=== PATIENT | female | born 1985 | race Hispanic/Latino ===

== ENCOUNTER 2016-12-27 02:56 | Inpatient (IN) | payer OTHER ==
[~2016-12-27] VITALS: Ht 167.6 cm; Wt 81.6 kg
[~2016-12-27 02:56] MED LIST: TYLENOL #31 TAB PO
[2016-12-28 06:24] LABS: ABSOLUTE BASOPHIL COUNT 0 /CUMM (0.0-0.2); ABSOLUTE EOSINOPHIL COUNT 0 /CUMM (0.0-0.7); ABSOLUTE GRANULOCYTE CT 13.9 /CUMM (1.4-6.5); ABSOLUTE LYMPH COUNT 0.8 /CUMM (1.2-3.4); BASOPHIL % 0.1 % (0.0-2.0); EOSINOPHIL % 0 % (0-5); GRANULOCYTE % 88.5 % (42.2-75.2); HEMATOCRIT 32.1 % (37-47); MEAN CORPUSCULAR HGB 26.5 PG (27.0-31.0); MEAN CORPUSCULAR HGB CONC 32.2 G/DL (33.0-37.0); MEAN CORPUSCULAR VOLUME 82.2 FL (81.0-99.0); PLATELET COUNT 230 /CUMM (130-400); RBC DISTRIBUTION WIDTH 15.4 % (11.5-14.5)
[2016-12-28 06:30] LABS: WHITE BLOOD CELL COUNT 15.8 /CUMM (4.8-10.8)
[2016-12-28] MEDS ORDERED: PERCOCET 5-3251 EACH PO (09:22)
--- NOTE | 2016-12-28 16:28 | Operative Report ---
Operative/Inv Procedure Report Surgery Date: 12/27/16 Name of Procedure: Cystoscopy. Bilateral stent insertion. Pre-Operative Diagnosis: Menorrhagia. Fibroid Post-Operative Diagnosis: Same Estimated Blood Loss: scant Surgeon/Operator Lights: MD MELISSA MACARIO-UROLOGY Anesthesia: general endotracheal tube (AAAAAAAA) Drains: 18 Croatian Harrison catheter Specimens: Urine culture Complications: None Operative/Procedure Note Note: The patient was taken to the operating room and placed on the OR table in supine position. Timeout was performed, with the patient awake, to confirm identify, planned procedures, anesthesia, antibiotics and other pertinent sergio-operative information. After adequate anesthesia, and IV antibiotics, the patient was placed in lithotomy Yellow-fin stirrups. She was then draped and prepped in the usual surgical fashion, including a vaginal prep. A 22 Croatian cystoscope sheath with a 30 angle lens was inserted into the bladder without significant difficulty. The bladder was thoroughly and systematically examined, and was noted to be free of tumor, free of stone, free of endometriosis. Both ureteral orifices were in their orthotopic positions with clear reflux bilaterally. Under direct visualization the left orifice was intubated with a 5 Croatian whistle-tip catheter, which was advanced easily into the left kidney pelvis. The right ureteral orifice was intubated with a second 5 Croatian ureteral whistle tip catheter, and advanced into the right renal pelvis without difficulty. For identification purposes the blue marked stent went into the left kidney and the right ureteral stent was marked red. Urine culture was obtained and sent to pathology. The cystoscope was then removed leaving both stents in proper place. An 18 Croatian Harrison catheter was inserted draining clear fluid and 10 mL of sterile water was then placed in the balloon. The ends ureteral stents, which protruded externally, were taped to the Harrison catheter in order to secure their position. The individual ureteral stents were then connected to their individual drainage devices. The patient tolerated the procedure well. All sponge needle and instrument count were correct at the end of this procedure. The patient was then placed in supine position with Venodyne's in place. At this point, Dr. Cook was able to proceed with her patient's surgery. Findings: Normal bladder Additional Comments: Bilateral stents to be removed by Dr. Cook at the end of her part of the procedure. CC: MELISSA MACARIO MD
[2016-12-29 02:43] VITALS: BP 118/78
--- NOTE | 2016-12-29 09:07 | PN- Post Delivery/GYN ---
Subjective Subjective: Overall patient doing well this morning. Pain is well controlled with PO meds. Ambulating and tolerating PO with no nausea or vomiting. Voiding well. Denies F/ C. Has not passed flatus or BM. Asking to go home. Review of Systems: per above Objective Last 24 Hrs of Vital Signs/I&O Vital Signs Date Time Temp Pulse Resp B/P B/P Pulse O2 O2 Flow FiO2 Mean Ox Delivery Rate 12/29 0243 118/78 Physical Exam: NAD RRR CTAB NT/ND. Good BS. Inc: C/D/I, corine in place. Assessment/Plan Assessment/Plan 31 yo female patient POD#2 s/p IDA Overall doing well. Pain control with PO meds Plan to discharge home today Patient was counseled regarding her lack of passing flatus. Not absolute necessity to pass prior to going home, however she was counseled about waiting for flatus prior to discharge to ensure proper recovery. She declined wanting to wait and she was counseled on signs and symptoms to be looking out for. Precuations were given for which she voiced understanding. Attending MD Review Statement Attending Statement Attending MD Statement: examined this patient, discussed with family, reviewed EMR data (avail), discussed with nursing
--- NOTE | 2017-01-01 13:58 | Operative Report ---
Operative/Inv Procedure Report Surgery Date: 12/27/16 Name of Procedure: Total abdominal hysterectomy Pre-Operative Diagnosis: Metromenorrhagia Post-Operative Diagnosis: Same Estimated Blood Loss: 500 Surgeon/Welder: KASEY BUTT MD and Dr. Bello Penaloza Anesthesia: general endotracheal tube Operative/Procedure Note Note: Procedure note patient was taken the operating room placed on position after adequate induction general anesthesia via endotracheal tube patient placed in dorsal supine position I at this point Dr. Cohen placed stents and perform cystoscopy abdomen was prepped and draped so fashion through Pfannenstiel skin incision skin was cut was carried down to rectus fascia cut in curvilinear fashion I direction using curved males peritoneal cavity was entered high into the abdomen patient tolerated that well I this point on Marlow O'Clayton was placed in usual fashion for that well ligament on the right was identified suture-ligated 0 round ligament left was identified using identified using 0 transected at this point bladder flap was developed sharply as well as bluntly sequentially cervical branches uterine artery and the clamped on the right and left were clamped and cut and oversewn using 0 to level of the external os specimen was removed using a Bovie the cuff was oversewn running locking suture of 0 was indicated interrupted [id number] is well the M was area close amounts warm sounds were clear peritoneal cavity was free of instruments a Aaron URI ST a was irrigated to the surgical cough patient tolerated that well maximal irrigation been performed hemostasis was apparent peritoneum was U Me 0 fascia was reapproximated using 2 continuous sutures #1 skin was reapproximated using corine after the subcutaneous change tissue after Bovie coagulated hemostasis Findings: Enlarged uterus 10-12 weeks size normal ovaries bilaterally
--- NOTE | 2017-01-14 18:36 | Surgical Discharge Summary ---
Visit Information Visit Dates Admission Date: 12/27/16 Discharge Date: 12/29/16 History of Present Illness Chief Complaint: Painful periods Medical History Isolation History: Standard Surgical History Pertinent Surgical History: non-contributory Psychosocial History What is Your Primary Language? Sami Review of Systems: -13 point review of systems as stated in the HPI Physical Exam: Pleasant female HEENT anicteric Lungs clear Heart S1 and S2 Incision clean dry and intact corine in place Extremities negative edema negative [facility] Course Course Attending Physician: KASEY BUTT MD Primary Care Physician: MARILUZ HARRISON MD Hospital Course: Patient was admitted for total abdominal hysterectomy she did well tolerating clear liquid diet first postoperative day she was out of bed trocar oral pain medication she urinated freely without usual Harrison and on second postoperative day patient has shower she received discharge instructions discharge home following physical exam Allergies: Coded Allergies: Sulfa (Sulfonamide Antibiotics) (Intermediate, ITCHING 12/27/16) aspirin (Intermediate, ITCHING 12/27/16) ibuprofen (Intermediate, ITCHING 12/27/16) Disposition Summary Disposition Principal Diagnosis: Status post total abdominal hysterectomy Additional Diagnosis: Anemia Discharge Disposition: home or self care Discharge Instructions General Discharge Information Code Status: Full Code Patient's Diet: Regular Patient's Activity: Pelvic rest for 6 weeks no heavy lifting for 6 weeks no driving for 2 Follow-Up Instructions/Appts: 1 week in my office to remove the corine Medications at Discharge Discharge Medications: Stop taking the following medications: Tylenol With Codeine (Tylenol With Codeine #3 Tablet) 1 TAB TAB ORAL Q6H as needed for PAIN Qty = 12 Start taking the following new medications: Oxycodone HCl/Acetaminophen (Percocet 5-325 MG Tablet) 5 MG-325 MG TABLET 1 Tablet ORAL EVERY 4 HOURS NEEDED as needed for PAIN Qty = 30 No Refills Comments: Last Taken: 12/29/16 Time: 5:35 AM
== END 2016-12-29 09:20 | DRG 513 ==
LOC: SDA 02:56 → ENRESERV 09:50 → GNO 12:34
PROVIDERS: ADMIT Specialist
DX: N92.0 Excessive and frequent menstruation with regular cycle (principal)
CPT/HCPCS: 36415; 81001; 81025; 87086; 88307; J0131; J0694; J1100; J1170; J2405; J3101